=== PATIENT | male | born 1960 | race Caucasian/White ===

== ENCOUNTER 2017-11-02 11:08 | Emergency (ER) | payer BC ==
[~2017-11-02] VITALS: Ht 170.2 cm; Wt 120.2 kg
[2017-11-02] MEDS ORDERED: ZOCOR20 MG PO (11:26)
[2017-11-02] MEDS ORDERED: JANUVIA25 MG PO (11:26)
[2017-11-02] MEDS ORDERED: B/P MED (11:27)
[2017-11-02] MEDS ORDERED: HYZAAR 100-12.1 EACH PO (11:27)
[2017-11-02] MEDS ORDERED: PROAIR HFA8.5 GM INH (12:12)
[2017-11-02] MEDS ORDERED: TESSALON PERLE100 MG PO (12:12)
[2017-11-02] MEDS ORDERED: CHERATUSSIN AC118 ML PO (12:12)
[2017-11-02 12:13] LABS: INFLUENZA A ANTIGEN None Detected (None Detect); INFLUENZA B ANTIGEN None Detected (None Detect)
[2017-11-02] MEDS ORDERED: ZPAK PO (12:13)
[2017-11-02 12:47] VITALS: BP 144/85
== END 2017-11-02 12:48 | disposition home or self-care (01) ==
LOC: M.ERS 11:08
PROVIDERS: Physician Assistant
DX: J20.9 Acute bronchitis, unspecified (principal); E11.9 Type 2 diabetes mellitus without complications; I10 Essential (primary) hypertension; E78.5 Hyperlipidemia, unspecified

== ENCOUNTER 2018-01-07 10:03 | Observation (INO) | payer BC ==
[~2018-01-07] VITALS: Ht 170.2 cm; Wt 122.5 kg
[~2018-01-07 10:03] MED LIST: B/P MED; CHERATUSSIN AC118 ML PO; HYZAAR 100-12.1 EACH PO; JANUVIA25 MG PO; PROAIR HFA8.5 GM INH; TESSALON PERLE100 MG PO; ZOCOR20 MG PO; ZPAK PO
[2018-01-07 10:11] VITALS: BP 167/92
[2018-01-07] MEDS ORDERED: LEXAPRO 10 MG T10 M2 PO (10:15)
[2018-01-07] MEDS ORDERED: NORVASC5 MG PO (10:23)
[2018-01-07] MEDS ORDERED: ANDROGEL1.25 GM TOP (10:23)
[2018-01-07] MEDS ORDERED: COREG25 MG PO (10:23)
[2018-01-07 10:34] LABS: ABSOLUTE EOSINOPHILS 0.1 thou/uL (0.0-0.7); ABSOLUTE LYMPHOCYTES 1.3 thou/uL (0.8-5.3); ABSOLUTE MONOCYTES 0.4 thou/uL (0.0-1.2); ABSOLUTE NEUTROPHILS 3.8 thou/uL (1.6-8.1); BASOPHILS 0.7 %; EOSINOPHILS 1.5 %; HEMOGLOBIN 15.5 gm/dL (14.0-18.0); LYMPHOCYTES 22.6 %; MCH 29.6 pg (26.0-34.0); MCHC 34.5 g/dL (28.0-37.0); MCV 85.9 fL (80.0-100.0); MONOCYTES 6.5 %; MPV 8.7 fl. (7.2-11.1); NUCLEATED RBCS 0 /100WBC; PLATELET COUNT* 133 thou/uL (150-400); POLYS 68.7 %; RBC 5.23 mil/uL (4.50-6.00); RDW-CV 13.9 % (10.5-14.5); WBC 5.6 thou/uL (4.0-11.0)
[2018-01-07 10:43] LABS: ANION GAP 7 mmol/L (7-16); BUN 12 mg/dL (7-18); CALCIUM 8.9 mg/dL (8.5-10.1); CHLORIDE 106 mmol/L (98-107); CO2 28 mmol/L (21-32); CREATININE 0.8 mg/dL (0.6-1.3); GLUCOSE 204 mg/dL (70-99); POTASSIUM 3.5 mmol/L (3.5-5.1); SODIUM 141 mmol/L (136-145)
[2018-01-07 10:45] LABS: INR 1.2; PROTIME 11.2 Seconds (9.20-11.50)
[2018-01-07 10:58] LABS: ALBUMIN 3.6 g/dL (3.4-5.0); ALKALINE PHOSPHATASE 110 U/L (46-116); LIPASE 398 U/L (73-393); NT-PRO BRAIN NAT PEPTIDE 162 pg/mL (<300); SGOT 22 U/L (15-37); SGPT 58 U/L (30-65); TOTAL BILIRUBIN 0.9 mg/dL (<0.1-1.0); TOTAL PROTEIN 6.8 g/dL (6.4-8.2); TROPONIN-I LEVEL <0.06 ng/mL (<0.06)
[2018-01-07 13:46] VITALS: BP 148/79
--- NOTE | 2018-01-07 16:00 | NUR ---
VSS, ASSUMED CARE OF PT FROM ER, ASSESSMENT PERFROMED AND CHARTED, FALL PRECAUTIONS IN PLACE AND CALL LIGTH IN REACH, PT IS A&O4 AND UP AD WILLARD AND DENIES ANY PAIN, PT IS ON RA SAO2 AT 95%, PT IS TRACING SR ON THE MONITOR, HE IS UP IN CAHIR AT THIS TIME, PT GOAL IS TO HAVE O CHEST PAIN AND IMPROVE BREATHING. HOURLY ROUNDS COMPLETED AND WILL FOLLOW WITH END OF SHIFT REPORT.
[2018-01-07 16:28] VITALS: BP 137/72
[2018-01-07 20:10] VITALS: BP 156/84
[2018-01-07 23:50] VITALS: BP 135/81
--- NOTE | 2018-01-08 03:26 | NUR ---
ASSUMED CARE OF PT AT 1900. PT IS ALERT AND ORIENTED. VSS. PERRLA. NO COMPLAINTS OF SOA. PT IS IN SINUS RYTHM ON THE TELEMETRY. PT IS RESTING COMFORTABLY ION BED. RESPIRATIONS ARE EVEN AND NONLABORED. WILL CONTINUE TO MONITOR PT.
[2018-01-08 04:45] VITALS: BP 136/89
[2018-01-08 05:26] LABS: HEMATOCRIT 44.8 % (42.0-52.0); HEMOGLOBIN 15.3 gm/dL (14.0-18.0); MCH 29.4 pg (26.0-34.0); MCHC 34.2 g/dL (28.0-37.0); MCV 86.2 fL (80.0-100.0); MPV 9.3 fl. (7.2-11.1); NUCLEATED RBCS 0 /100WBC; PLATELET COUNT* 137 thou/uL (150-400); RDW-CV 13.9 % (10.5-14.5)
[2018-01-08 05:45] LABS: CALCIUM 9.4 mg/dL (8.5-10.1); CREATININE 0.9 mg/dL (0.6-1.3); POTASSIUM 3.9 mmol/L (3.5-5.1)
[2018-01-08 06:36] LABS: ABSOLUTE LYMPHOCYTES 0.8 thou/uL (0.8-5.3); ABSOLUTE MONOCYTES 0.1 thou/uL (0.0-1.2); ABSOLUTE NEUTROPHILS 12.1 thou/uL (1.6-8.1)
[2018-01-08 06:37] LABS: ANISOCYTOSIS 1+; PLATELET ESTIMATE DECREASED; POIKILOCYTOSIS 1+
[2018-01-08 08:30] VITALS: BP 138/78
[2018-01-08 11:03] VITALS: BP 138/78
[2018-01-08] MEDS ORDERED: ASPIR 8181 MG PO (11:21)
[2018-01-08 11:31] VITALS: BP 131/74
--- NOTE | 2018-01-08 12:03 | NUR ---
ASSUMED CARE OF PATIENT AT 0730. ALERT AND ORIENTED X 4. VITAL SIGNS STABLE ON ROOM AIR. UP AD WILLARD IN ROOM. NO SHORTNESS OF AIR. DENIES PAIN AND NAUSEA. PATIENT IS SINUS RHYTHM ON TELE MONITOR. FALL PRECAUTIONS IN PLACE AND CALL LIGHT WITHIN REACH. NURSING WILL CONTINUE TO MONITOR.
--- NOTE | 2018-01-08 12:05 | NUR ---
PATIENT DISCHARGED FROM UNIT AT 1145. ALERT AND ORIENTED X 4. VITAL SIGNS STABLE ON ROOM AIR. UP AD WILLARD. DENIES PAIN AND NAUSEA. IV DISCONTINUED. DISCHARGE INSTRUCTIONS GIVEN TO PATIENT. LEFT WITH ALL BELONGINGS. PATIENT LEFT WITH SPOUSE VIA CAR.
[2018-01-08 12:07] VITALS: BP 138/78
--- NOTE | 2018-01-08 17:22 | EKG ---
[place] [address] ELECTROCARDIOGRAM REPORT Name: IHSAN GROSS Room: [address]#: [id number] Admission: 01/07/18 Attend Phys: Jamar Pierce MD Discharge: 01/08/18 Date of : 56 Report #: [id number] THIS REPORT FOR: //name// [facility] ED Test Date: 2018-01-07 Test Time: 10:26:58 Pat Name: IHSAN GROSS Department: Room: [facility] Gender: Olive Pitter: Jarad SCHAFER : 1960 Requested By: Richy Felton Order Number: [id number] MD: El Damian Measurements Intervals [place] Rate: 60 P: 27 IA: 183 QRS: 29 QRSD: 104 T: 32 QT: 425 QTc: 425 Interpretive Statements Sinus rhythm Borderline ST elevation, lateral leads Compared to ECG 12/20/2006 12:00:34 ST (T wave) deviation now present Incomplete right bundle-branch block no longer present Left ventricular hypertrophy no longer present Myocardial infarct finding no longer present Electronically Signed On 01-08-2018 17:22:25 CDT by El Damian [email or web address] <ELECTRONICALLY SIGNED> By: El Damian MD, FACC 01/08/18 1722 1026 1026 El Damian MD, FACC /EPI
--- NOTE | 2018-01-09 08:13 | CON ---
[address] [address] CONSULTATION Name: IHSAN GROSS Room: [address] Celestino Mcnair#: [id number] Admission: 01/07/18 Attend Phys: Jamar Pierce MD Discharge: 01/08/18 Date of : 56 Report #: [id number] THIS REPORT FOR: //name// CC: Jamar Hurtado DATE OF SERVICE: 01/08/2018 ATTENDING PHYSICIAN: Jamar Pierce MD LOCATION: The patient is located in room 214. INDICATION FOR CONSULTATION: Non-massive hemoptysis, bronchitis. HISTORY OF PRESENT ILLNESS: The patient is a 57-year-old male, remote smoker, who came to the hospital for some shortness of breath and also he had some non-massive hemoptysis yesterday. The patient was exercising on the treadmill. He states he was going 4-1/2-5 miles an hour fast walker, slow jog and was short of breath with some wheezing and coughing, had some bloody sputum, about a teaspoon or two, then it became frothy in the sink and then it resolved. He has not had any since then. He feels fine today. He has had a stress test a couple of years ago that was negative. He was going to have another stress test today; they could not get it scheduled so he is going to be dismissed home and then come back on Wednesday for the stress test. He has had some bronchitis and pneumonia 3-4 months ago, but denies anything recently. No sore throat or myalgias. OUTPATIENT MEDICATIONS: Included from 11/02/2017 some guaifenesin, benzonatate, may have been on some antibiotics then also. At home he is on AndroGel 1.25 grams topically daily, Lexapro 10 mg daily, losartan 100 mg daily, simvastatin 20 mg daily, Januvia 25 mg daily, carvedilol 25 mg b.i.d., albuterol inhaler p.r.n. He is not on any oxygen. PAST MEDICAL HISTORY: Includes diabetes, hypertension, hyperlipidemia. No definite history of asthma or chronic obstructive pulmonary disease. ALLERGIES: He has no known medical allergies. FAMILY HISTORY: Positive for heart disease. SOCIAL HISTORY: The patient may smoke a cigar every month or two, has a prior 20-30 pack year history of smoking, last time smoked cigarettes was about 10 years ago. He takes one glass of wine weekly. [place] [address] CONSULTATION Name: IHSAN GROSS Room: [address] Celestino Mcnair#: [id number] Admission: 01/07/18 Attend Phys: Jamar Pierce MD Discharge: 01/08/18 Date of : 56 Report #: [id number] REVIEW OF SYSTEMS: A 14-point review of systems was reviewed and negative except for pertinent positives noted in HPI. PHYSICAL EXAMINATION: GENERAL: A 57-year-old male sitting up in chair, in no acute distress. VITAL SIGNS: Stable. Blood pressure is 138/78, heart rate 66, respirations 16, temperature is 36.5, room air sats 97%. He is 5 feet 10 inches tall, weighs 122 kg or 255 pounds, BMI is 42. HEENT: Pharynx is crowded. Tongue laps over back molars. Mallampati score between 2 and 3, barely see the soft palate. NECK: Thick, about size 18 collar without masses or adenopathy. Redundant neck tissue noted. CHEST: Shows clear breath sounds without wheeze or rhonchi. CARDIOVASCULAR: Regular rate and rhythm without murmur, gallop or rub. Heart rate is in 60s. ABDOMEN: Obese without masses or megaly. EXTREMITIES: No calf tenderness. No cyanosis, clubbing or edema. SKIN: Dry and intact. NEUROLOGIC: Grossly intact, moves all fours to commands. LABORATORY DATA: His hemoglobin was 15, white count 5600 yesterday, platelets 133,000 and today his hemoglobin is 15, white count 13,000, platelets are 137,000, normal differential. Absolute neutrophil count is 12,000. Sodium is 141, potassium is 3.9, carbon dioxide 26, BUN is 14, creatinine 0.9, glucose has been anywhere between 230 and 280. It has been elevated. Coags were within normal limits. EKG was unremarkable. CT angio of the chest was negative, had minimal basilar atelectasis, but no pulmonary emboli, no masses, no tumors, no evidence for source for active or ongoing hemoptysis. IMPRESSION: Non-massive hemoptysis, probably from trauma from the treadmill and could have some minimal bronchitis. He had some exertional dyspnea, could be angina. PLAN: Okay with me for home. If primary would wish to send him home on antibiotics it is fine with me. He is not actively wheezing at this time. He will follow up with Cardiology. I told him through his primary care physician he is to have a followup chest x-ray in about 3 months just to make sure all is stable. Other than that there is no reason for bronchoscopy or followup CT scans at this time. The patient wishes to follow up with Dr. Beronica Hurtado DO, primary care physician, [place], [place], and again the only thing I would recommend is maybe a followup chest x-ray in March or April of this year to ensure stability, and he is aware of that. I am happy to see him [address] [place] [address] CONSULTATION Name: IHSAN GROSS Room: [address] Celestino Mcnair#: [id number] Admission: 01/07/18 Attend Phys: Jamar Pierce MD Discharge: 01/08/18 Date of : 56 Report #: [id number] again as needed. It appears he is going home today and be discharged today. We will sign off care. <ELECTRONICALLY SIGNED> By: Jean Claude Shen MD 01/09/18 0813 1116 [id number] Shen MD /pola
--- NOTE | 2018-01-10 13:51 | NUR ---
RECEIVED CALL THIS AM FROM SCHEDULING THAT PT WAS TO HAVE OUTPT STRESS TEST TODAY. [facility] IS UNABLE TO SCHEDULE IT PT IS OUT OF NETWORK. DISCUSSED WITH DR HELTON, ASKED THAT PT'S PCP BE NOTIFIED TO SCHEDULE. CALL TO PT, UPDATED ON ISSUE. CALL TO HIS PCP DR GONZALES OFFICE, LEFT MESSAGE FOR NURSE AT 1030. NO CALL BACK YET, CALL BACK TO OFFICE, SPOKE WITH LEANDRO, EXPLAINED AND SHE ASKED THAT INFO BE FAXED OVER. THEY WILL NEED TO CONTACT PT TO SEE HIM AND EVAL. FAXED TO [phone] OFFICE [phone]
== END 2018-01-08 11:45 | disposition home or self-care (01) ==
LOC: M.ERS 10:03 → M.2W 12:12 → M.TBA-ER 12:12 → M.2W 13:52
PROVIDERS: Emergency Medicine; ADMIT Internal Medicine
DX: J40 Bronchitis, not specified as acute or chronic (principal); I10 Essential (primary) hypertension; E11.9 Type 2 diabetes mellitus without complications; E78.5 Hyperlipidemia, unspecified; E66.01 Morbid (severe) obesity due to excess calories; Z68.41 Body mass index [BMI] 40.0-44.9, adult; Z87.891 Personal history of nicotine dependence

== ENCOUNTER 2020-10-09 10:58 | Emergency (ER) | payer BC ==
[~2020-10-09] VITALS: Ht 172.7 cm; Wt 122.5 kg
[~2020-10-09 10:58] MED LIST changes: +ANDROGEL1.25 GM TOP; +ASPIR 8181 MG PO; +COREG25 MG PO; +LEXAPRO 10 MG T10 M2 PO; +NORVASC5 MG PO
[2020-10-09 11:30] LABS: ABSOLUTE LYMPHOCYTES 1.2 thou/uL (0.8-5.3); ABSOLUTE MONOCYTES 0.4 thou/uL (0.0-1.2); ABSOLUTE NEUTROPHILS 3.1 thou/uL (1.6-8.1); BASOPHILS 0.7 %; EOSINOPHILS 0.9 %; HEMATOCRIT 46.4 % (42.0-52.0); HEMOGLOBIN 15.8 gm/dL (14.0-18.0); LYMPHOCYTES 24.7 %; MCH 29.9 pg (26.0-34.0); MCHC 34.1 g/dL (28.0-37.0); MCV 87.8 fL (80.0-100.0); MONOCYTES 8.7 %; MPV 8.6 fl. (7.2-11.1); NUCLEATED RBCS 0 /100WBC; PLATELET COUNT* 122 thou/uL (150-400); RBC 5.29 mil/uL (4.50-6.00); RDW-CV 15.1 % (10.5-14.5); WBC 4.8 thou/uL (4.0-11.0)
[2020-10-09 11:36] LABS: CALCIUM 9.1 mg/dL (8.5-10.1); CREATININE 0.7 mg/dL (0.6-1.3); POTASSIUM 3.5 mmol/L (3.5-5.1)
[2020-10-09 11:37] LABS: APTT 27.5 Seconds (25.0-31.3); PROTIME 10.9 Seconds (9.20-11.50)
[2020-10-09 11:47] LABS: TOTAL PROTEIN 7.1 g/dL (6.4-8.2)
[2020-10-09] MEDS ORDERED: HYDROCODON-ACE1 EAC7 PO (14:19)
[2020-10-09 14:54] VITALS: BP 149/83
--- NOTE | 2020-10-09 15:53 | EKG ---
[place] [address] ELECTROCARDIOGRAM REPORT Name: IHSAN GROSS Room: [facility]#: [id number] Admission: 10/09/20 Attend Phys: Discharge: 10/09/20 Date of : 56 Date of Service: 10/09/20 1106 Report #: [id number] THIS REPORT FOR: //name// [facility] ED Test Date: 2020-10-09 Test Time: 11:06:48 Pat Name: IHSAN GROSS Department: Room: Gender: Psychiatric Nurse: : 1960 Requested By: Damián Puri Order Number: [id number] MD: Ben Neves Measurements Intervals [place] Rate: 60 P: -8 FL: 174 QRS: 25 QRSD: 105 T: 30 QT: 442 QTc: 442 Interpretive Statements Sinus rhythm Borderline ST elevation, lateral leads Compared to ECG 01/07/2018 10:26:58 No significant changes Electronically Signed On 10-09-2020 15:53:49 DESKTOP SPECIALIST by Ben Neves [email or web address] <ELECTRONICALLY SIGNED> By: Ben Neves MD, FAC 10/09/20 1553 1106 1106 Ben Neves MD, [facility] /EPI
--- NOTE | 2020-10-09 15:57 | EKG ---
[place] [address] ELECTROCARDIOGRAM REPORT Name: IHSAN GROSS Room: [facility]#: [id number] Admission: 10/09/20 Attend Phys: Discharge: 10/09/20 Date of : 56 Date of Service: 10/09/20 1321 Report #: [id number] THIS REPORT FOR: //name// [facility] ED Test Date: 2020-10-09 Test Time: 13:21:18 Pat Name: IHSAN GROSS Department: Room: Gender: Line Tender: : 1960 Requested By: Damián Puri Order Number: [id number] MD: Ben Neves Measurements Intervals [place] Rate: 58 P: -16 DE: 177 QRS: 19 QRSD: 107 T: 21 QT: 449 QTc: 442 Interpretive Statements Sinus rhythm Baseline wander in lead(s) V4 Compared to ECG 10/09/2020 11:06:48 no change Electronically Signed On 10-09-2020 15:57:06 MILITARY ANALYST by Ben Neves [email or web address] <ELECTRONICALLY SIGNED> By: Ben Neves MD, [facility] 10/09/20 1557 1321 1321 Ben Neves MD, [facility] /EPI
== END 2020-10-09 14:55 | disposition home or self-care (01) ==
LOC: M.ERS 10:58
PROVIDERS: Emergency Medicine Emergency Medical Services
DX: R07.89 Other chest pain (principal); E11.9 Type 2 diabetes mellitus without complications; I10 Essential (primary) hypertension; E78.5 Hyperlipidemia, unspecified; Z96.643 Presence of artificial hip joint, bilateral; Z87.891 Personal history of nicotine dependence